=== PATIENT | female | born 1970 | race Caucasian/White ===

== ENCOUNTER → 2020-12-18 18:00 | Outpatient (CLI) | payer BC, SELFPAY ==
[2020-12-18 18:19] LABS: Basophils # 0.1 K/mm3 (0-0.2); Basophils % 0.8 % (0.1-2.0); Eosinophils # 0.2 K/mm3 (0.0-0.4); Eosinophils % 1.7 % (0.1-12.0); Hemoglobin 15.6 g/dL (12.2-16.2); Lymphocytes # 5.2 K/mm3 (0.7-4.5); Lymphocytes % 41.6 % (10-50); Mean Corpuscular HGB Conc 31.9 g/dL (31.8-35.4); Mean Corpuscular Hemoglobin 30.8 pg (27.0-31.2); Mean Corpuscular Volume 96.8 fl (81-99); Mean Platelet Volume 8.3 fl (7.4-10.4); Monocytes # 0.6 K/mm3 (0.1-1.0); Monocytes % 4.4 % (1.7-9.3); Neutrophils # 6.4 K/mm3 (1.8-7.8); Neutrophils % 51.5 % (37.0-80.0); Platelet Count 284 K/mm3 (142-424); Red Blood Count 5.06 M/mm3 (4.20-5.40); Red Cell Distribution Width 12.7 % (11.5-17.5); White Blood Count 12.4 K/mm3 (4.8-10.8)
[2020-12-18 18:29] LABS: Alanine Aminotransferase 27 U/L (12-78); Albumin Level 4.5 g/dl (3.5-5.0); Albumin/Globulin Ratio 1.5 (1.1-1.8); Alkaline Phosphatase 95 U/L (38-126); Anion Gap 13.2 mEq/L (5-15); Aspartate Amino Transferase 26 U/L (14-36); Bilirubin,Total 0.4 mg/dl (0.2-1.3); Blood Urea Nitrogen 9 mg/dl (7-17); Calcium 10.2 mg/dl (8.4-10.2); Carbon Dioxide 27 mmol/L (22.0-30.0); Chloride 103 mmol/L (98-107); Estimated Glomerular Filt Rate 75 ml/min (>60); GFR (African American) 91 ML/MIN (>60); Glucose 90 mg/dl (74-100); HDL Cholesterol 48 mg/dl (40-60); Potassium 4.2 mmoL/L (3.5-5.1); Sodium 139 mmol/L (136-145); Total Protein,Serum 7.5 g/dl (6.3-8.2); Triglycerides 294 mg/dl (30-150); VLDL Cholesterol 59 mg/dL (0-40)
[2020-12-18 18:37] LABS: Chol/HDL Ratio 7.3 (1-3.5); Cholesterol 349 mg/dl (140-200)
[2020-12-18 18:39] LABS: Direct LDL Cholesterol 256.63 mg/dL (100-129)
[2020-12-18 18:59] LABS: Thyroid Stimulating Hormone 4.06 uIU/mL (0.465-4.68)
== END ==
PROVIDERS: Visit Provider Family Medicine
DX: Z01.89 Encounter for other specified special examinations (principal)
CPT/HCPCS: 80053; 80061; 84436; 84443; 85025

== ENCOUNTER 2021-07-24 19:47 | Emergency (ER) | payer BC, SELFPAY ==
--- NOTE | 2021-07-24 19:38 | ECG_ITS ---
APPROVED REPORT Exam: Resting ECG HR:88 bpm ECG Measurements Heart Rate 88 AXES ND 118 P 18 QRSd 68 QRS 21 QT 370 T 27 QTc 447 Conclusion Normal sinus rhythm Normal ECG Electronically signed by : Parag Strong MD 07/25/2021 09:45:52
[2021-07-24 19:47] VITALS: BP 142/95; PULSE 95; RESP 16; TEMP 36.6; O2SAT 99; BMI 28.5
[2021-07-24 19:59] VITALS: BMI 28.5
--- NOTE | 2021-07-24 19:59 | XR_ITS ---
PROCEDURE INFORMATION: Exam: XR Chest Exam date and time: 07/24/2021 7:59 PM Age: 50 years old Clinical indication: Injury or trauma; Fall; Blunt trauma (contusions or hematomas); Additional info: Pain in left chest/rib area post fall TECHNIQUE: Imaging protocol: XR of the chest. Views: 2 views. COMPARISON: No relevant prior studies available. FINDINGS: Lungs: Unremarkable. No consolidation. Pleural spaces: Unremarkable. No pleural effusion. No pneumothorax. Heart/Mediastinum: Unremarkable. No cardiomegaly. Bones/joints: Unremarkable. There is dextroconvex lower thoracic and upper lumbar scoliosis. IMPRESSION: No acute findings.
--- NOTE | 2021-07-24 20:00 | XR_ITS ---
PROCEDURE INFORMATION: Exam: XR Left Ribs Exam date and time: 07/24/2021 8:00 PM Age: 50 years old Clinical indication: Injury or trauma; Fall; Rib area, left side; Blunt trauma; Additional info: Pain in left chest/rib post fall TECHNIQUE: Imaging protocol: XR Left ribs. Views: 2 views. COMPARISON: CR XR CHEST 2V 07/24/2021 8:33 PM FINDINGS: Bones/joints: No evidence of acute fracture. There is no evidence of left pleural effusion or pneumothorax. Dextroconvex lower thoracic and lumbar scoliosis is identified. Soft tissues: Normal. IMPRESSION: No acute findings.
[2021-07-24 20:09] LABS: Basophils # 0.1 K/mm3 (0-0.2); Basophils % 1.2 % (0.1-2.0); Eosinophils # 0.1 K/mm3 (0.0-0.4); Eosinophils % 1.4 % (0.1-12.0); Hematocrit 46.6 % (37.0-47.0); Lymphocytes % 40.9 % (10-50); Mean Corpuscular HGB Conc 32.2 g/dL (31.8-35.4); Mean Corpuscular Hemoglobin 31.6 pg (27.0-31.2); Mean Corpuscular Volume 98.1 fl (81-99); Mean Platelet Volume 8.1 fl (7.4-10.4); Monocytes # 0.5 K/mm3 (0.1-1.0); Neutrophils % 51.5 % (37.0-80.0); Platelet Count 312 K/mm3 (142-424); Red Blood Count 4.76 M/mm3 (4.20-5.40); Red Cell Distribution Width 12.8 % (11.5-17.5); White Blood Count 9.7 K/mm3 (4.8-10.8)
[2021-07-24 20:11] LABS: Chloride 105 mmol/L (98-107); Potassium 3.9 mmoL/L (3.5-5.1); Sodium 140 mmol/L (136-145)
[2021-07-24 20:14] LABS: Blood Urea Nitrogen 5 mg/dl (7-17); Creatinine Clearance Estimated 139 mL/min (50-200); Estimated Glomerular Filt Rate 105 ml/min (>60); GFR (African American) 127 ML/MIN (>60)
[2021-07-24 20:15] LABS: Anion Gap 11.9 mEq/L (5-15); Calcium 9.1 mg/dl (8.4-10.2); Carbon Dioxide 27 mmol/L (22.0-30.0); Glucose 129 mg/dl (74-100)
[2021-07-24 20:30] LABS: Troponin I < 0.01 ng/ml (0.00-0.034)
--- NOTE | 2021-07-24 21:11 | [facility].EDGENADL ---
ED Disposition Clinical Impression: Contusion, chest wall Qualifiers: Encounter type: initial encounter Laterality: unspecified laterality Qualified Code(s): S20.219A - Contusion of unspecified front wall of thorax, initial encounter Contusion of rib on left side Qualifiers: Encounter type: initial encounter Qualified Code(s): S20.212A - Contusion of left front wall of thorax, initial encounter Blunt trauma to abdomen Qualifiers: Encounter type: initial encounter Qualified Code(s): S39.91XA - Unspecified injury of abdomen, initial encounter Disposition: Home, Self-Care Condition on Discharge: Good Instructions: DI for Rib Contusion Additional Instructions: fluids and see pcp for follow up Referrals: Edgar Lux MD [Primary Care Provider] - Angella Noe MD [Referring] - - Critical Care Critical Care Time: No Attestation: On 07/24/21, the high probability of a clinically significant, sudden or life threatening deterioration of the following system(s) required my full and direct attention, intervention and personal management. The time I documented below is in addition to time spent performing reported procedures but includes the following listed in this critical care notation. Medical Decision Making - Medical Records Medical records reviewed: Yes: I reviewed the patient's medical records. - Monico Inquiry Pt receiving controlled substance: No Vital Signs: 07/24/21 19:47 07/24/21 21:22 07/24/21 21:30 Temperature 97.9 F Temperature Source Oral Pulse Rate 75 68 Pulse Rate [Right] 95 H Respiratory Rate 16 17 14 Blood Pressure 145/94 H 143/94 H Blood Pressure [Right Arm] 142/95 H Blood Pressure Mean [Right Arm] 110 Blood Pressure Source [Right Arm] Automatic Cuff Blood Pressure Position [Right Arm] Sitting 02 Sat by Pulse Oximetry 99 98 99 Oxygen Delivery Method Room Air - Lab Data Lab results reviewed: Yes: I reviewed the patient's lab results. Lab Results 07/24/21 19:55: WBC 9.7, RBC 4.76, Hgb 15.0, Hct 46.6, MCV 98.1, MCH 31.6 H, MCHC 32.2, RDW 12.8, Plt Count 312, MPV 8.1, Neut % (Auto) 51.5, Lymph % (Auto) 40.9, [place] % (Auto) 5.0, Eos % (Auto) 1.4, Baso % (Auto) 1.2, Neut # (Auto) 5.0, Lymph # (Auto) 4.0, [place] # (Auto) 0.5, Eos # (Auto) 0.1, Baso # (Auto) 0.1 07/24/21 19:55: Sodium 140, Potassium 3.9, Chloride 105, Carbon Dioxide 27, Anion Gap 11.9, BUN 5 L, Creatinine 0.60, Estimated Creat Clear 139, Estimated GFR 105, Est GFR ( Amer) 127, Glucose 129 H, Calcium 9.1, Troponin I < 0.01 Result diagrams: 07/24/21 19:55 07/24/21 19:55 Orders (Tests/Meds): ED MEDICATIONS Discontinued Medications Generic Name Dose Route Start Last Admin Trade Name Freq PRN Reason Stop Dose Admin Iopamidol 70 ml 07/24/21 22:22 07/24/21 22:24 Iopamidol-370 (76%);100ml Bottle IV 07/24/21 22:23 70 ml ONCE ONE Administration Sodium Chloride 40 ml 07/24/21 22:22 07/24/21 22:24 0.9 % Sodium Chloride 50 Ml Vial IV 07/24/21 22:23 40 ml ONCE ONE Administration Sodium Chloride 10 ml 07/24/21 22:22 07/24/21 22:24 Sodium Chloride 0.9% 10ml Syr (Rad Only) IV 07/24/21 22:23 10 ml ONCE ONE Administration ORDERS Category Date Time Status Troponin I Q3H Lab 07/24/21 23:10 Received Troponin I Q3H Lab 07/25/21 02:00 Ordered - Radiology Data #1 Image(s): Chest, Other (ribs ) Image Reviewed: Yes I have reviewed radiologist's interpretation Preliminary Findings: No Fracture Seen - CT Data CT Scan: C-Spine, Abdomen, Pelvis, Chest, T-Spine Time Received: 23:[address] Reviewed: Yes: I have viewed the radiologist's interpretation Preliminary Findings: No Fracture Seen - ECG Data Tracing #1 Normal Sinus Rhythm: Yes Ischemic changes: non-specific ST-T wave changes Medical Decision Narrative: no acute fx noted General Adult HPI - General Chief complaint: PAIN Stated complaint: chest pain Time Seen by Provider: 07/24/21 2
--- NOTE | 2021-07-24 21:12 | CT_ITS ---
PROCEDURE INFORMATION: Exam: CT Cervical Spine Without Contrast Exam date and time: 07/24/2021 9:12 PM Age: 50 years old Clinical indication: Injury or trauma; Fall; Blunt trauma; Injury date: 07/24/2021; Additional info: Pain in chest/rib left side post fall TECHNIQUE: Imaging protocol: Computed tomography images of the cervical spine without contrast. Radiation optimization: All CT scans at this facility use at least one of these dose optimization techniques: automated exposure control; mA and/or kV adjustment per patient size (includes targeted exams where dose is matched to clinical indication); or iterative reconstruction. COMPARISON: CR XR RIBS LT 2V 07/24/2021 8:37 PM FINDINGS: Bones/joints: No acute fracture. Reversal of normal cervical lordotic curvature which is likely on the basis of patient head position at the time of imaging. Discs/Spinal canal/Neural foramina: Intervertebral disc space narrowing of C5-C6 and C6-C7. Areas of focal osseous encroachment into the anterior epidural space noted at both levels. No evidence of osseous central canal stenosis. Exit foramina appear patent throughout the cervical spine. There is narrowing and degenerative changes noted between the anterior arch of C1 and the dens of C2. Lungs: Lung apices are normal. Soft tissues: Unremarkable. IMPRESSION: Degenerative changes of the cervical spine. No evidence of acute fracture.
--- NOTE | 2021-07-24 21:12 | CT_ITS ---
PROCEDURE INFORMATION: Exam: CT Abdomen And Pelvis With Contrast Exam date and time: 07/24/2021 9:12 PM Age: 50 years old Clinical indication: Injury or trauma; Fall; Blunt; Generalized; Injury date: 07/24/2021; Additional info: Pain in chest/rib left side post fall trauma protocols TECHNIQUE: Imaging protocol: Computed tomography of the abdomen and pelvis with contrast. Radiation optimization: All CT scans at this facility use at least one of these dose optimization techniques: automated exposure control; mA and/or kV adjustment per patient size (includes targeted exams where dose is matched to clinical indication); or iterative reconstruction. Contrast material: ISOVUE; Contrast volume: 70 ml; Contrast route: IV; COMPARISON: CT THORACIC SPINE WO CON 07/24/2021 10:03 PM FINDINGS: Lungs: No mass/infiltrate at either lung base. No pleural effusion. Liver: There is a small ill-defined area of diminished attenuation noted adjacent to the falciform ligament within the medial segment of the left hepatic lobe. This is felt to be benign, representing an area of focal fatty infiltration. The liver is normal size. No intrahepatic biliary dilitation. Gallbladder and bile ducts: Normal. No calcified stones. No ductal dilation. Gallbladder wall thickness is normal. Pancreas: Normal. No ductal dilation. Spleen: Normal. No splenomegaly. Adrenal glands: Normal. No mass. Kidneys and ureters: There is a 1.4 cm exophytic cyst arising from the inferior pole the left kidney. No follow-up imaging recommended. Otherwise unremarkable. Stomach and bowel: Unremarkable. No obstruction. No mucosal thickening. Small bowel mesentery is normal. Appendix: The appendix is poorly visualized on this examination. Intraperitoneal space: Unremarkable. No free air. No significant fluid collection. Vasculature: Atheromatous calcifications of the aorta and iliac arteries noted. No abdominal aortic aneurysm. Lymph nodes: Unremarkable. No enlarged lymph nodes. Urinary bladder: Unremarkable as visualized. Reproductive: Unremarkable as visualized. Bones/joints: Degenerative changes noted. No acute fracture. Soft tissues: Diastasis of the inferior rectus abdominus muscle compatible with a small ventral hernia. IMPRESSION: No acute process within the abdomen or pelvis.
--- NOTE | 2021-07-24 21:12 | CT_ITS ---
PROCEDURE INFORMATION: Exam: CT Thoracic Spine Without Contrast Exam date and time: 07/24/2021 9:12 PM Age: 50 years old Clinical indication: Injury or trauma; Fall; Blunt trauma (contusions or hematomas); Injury date: 07/24/2021; Additional info: Pain in chest/rib left side post fall TECHNIQUE: Imaging protocol: Computed tomography images of the thoracic spine without contrast. Radiation optimization: All CT scans at this facility use at least one of these dose optimization techniques: automated exposure control; mA and/or kV adjustment per patient size (includes targeted exams where dose is matched to clinical indication); or iterative reconstruction. COMPARISON: CT CERVICAL SPINE WO CON 07/24/2021 9:57 PM FINDINGS: Vertebrae: No acute fracture. Normal alignment. Discs/Spinal canal/Neural foramina: No significant disc protrusion. No severe spinal canal stenosis. No significant neural foraminal narrowing. There is mild anterior osteophyte formation noted at T6-T7, T7-T8, and T9-T10. Soft tissues: Unremarkable. IMPRESSION: Unremarkable CT Spine. Mild degenerative changes. No evidence of acute fracture or malalignment.
--- NOTE | 2021-07-24 21:12 | CT_ITS ---
PROCEDURE INFORMATION: Exam: CTA Chest With Contrast Exam date and time: 07/24/2021 9:12 PM Age: 50 years old Clinical indication: Injury or trauma; Fall; Bleeding/hemorrhage; Injury date: 07/24/2021; Additional info: Pain in chest/rib left side post fall trauma protocols. Pain in left ribs TECHNIQUE: Imaging protocol: Computed tomographic angiography of the chest with contrast. 3D rendering (Not supervised by radiologist): MIP and/or 3D reconstructed images were created by the technologist. Radiation optimization: All CT scans at this facility use at least one of these dose optimization techniques: automated exposure control; mA and/or kV adjustment per patient size (includes targeted exams where dose is matched to clinical indication); or iterative reconstruction. Contrast material: ISOVUE 370; Contrast volume: 70 ml; Contrast route: INTRAVENOUS (IV); COMPARISON: CR XR CHEST 2V 07/24/2021 8:33 PM FINDINGS: Pulmonary arteries: The pulmonary trunk, main, and branch pulmonary arteries contain no filling defects. Aorta: Unremarkable. No aortic aneurysm. No aortic dissection. Lungs: Unremarkable. No consolidation. No masses. Pleural spaces: Unremarkable. No pneumothorax. No pleural effusion. Heart: No cardiomegaly. No pericardial effusion. Heart RV/LV ratio: Within normal limits. Coronary arteries: There is no evidence of significant coronary artery calcifications. Mediastinal space: No evidence of mediastinal or hilar mass. Lymph nodes: Unremarkable. No enlarged lymph nodes. Bones/joints: Unremarkable. Specifically no visible left rib fracture identified. Soft tissues: Unremarkable. IMPRESSION: No acute findings.
[2021-07-24 21:22] VITALS: BP 145/94; PULSE 75; RESP 17; O2SAT 98
[2021-07-24 21:30] VITALS: BP 143/94; PULSE 68; RESP 14; O2SAT 99
--- NOTE | 2021-07-24 21:55 | PC.NURSE ---
Pt to CT at this time
--- NOTE | 2021-07-24 21:55 | PC.NURSE ---
pt to CT
--- NOTE | 2021-07-24 22:35 | PC.NURSE ---
Pt returned from CT
[2021-07-24 22:53] VITALS: BP 156/92; PULSE 72; RESP 20; O2SAT 99
[2021-07-24 23:35] VITALS: BP 147/88; PULSE 77; RESP 16; TEMP 36.8; O2SAT 98
[2021-07-24 23:41] LABS: Troponin I < 0.01 ng/ml (0.00-0.034)
== END 2021-07-24 23:38 | disposition home or self-care (01) ==
PROVIDERS: Emergency Provider Emergency Medicine; PCP Family Medicine
DX: S20.212A Contusion of left front wall of thorax, initial encounter (principal); S39.91XA Unspecified injury of abdomen, initial encounter; W22.8XXA Striking against or struck by other objects, initial encounter; Y92.89 Other specified places as the place of occurrence of the external cause; E78.5 Hyperlipidemia, unspecified; Z79.899 Other long term (current) drug therapy
CPT/HCPCS: 36415; 71046; 71100; 71275; 72125; 72128; 74177; 80048; 84484; 85025; 93005; 96374; 99283; Q9967

== ENCOUNTER → 2021-08-04 12:59 | Outpatient (POV) | payer BC, SELFPAY | PROVIDERS: Visit Provider Dermatology | DX: Z00.00 Encounter for general adult medical examination without abnormal findings (principal) ==

== ENCOUNTER → 2022-10-22 14:00 | Outpatient (CLI) | payer BC, SELFPAY ==
[2022-10-22 15:18] LABS: Coronavirus 19, PCR Not Detected (NotDetected)
[2022-10-22 17:16] LABS: Influenza A, PCR Not Detected (NotDetected); Influenza B, PCR Not Detected (NotDetected)
== END ==
PROVIDERS: PCP Family Medicine; Visit Provider Family Medicine
DX: R05.9 Cough, unspecified (principal)
CPT/HCPCS: C9803; U0003; U0005

== ENCOUNTER 2023-12-05 19:42 | Outpatient (CLI) | payer BC, SELFPAY | END 2023-12-05 23:59 | LOC: LAB.DROPOF 19:43 | PROVIDERS: PCP Family Medicine; Visit Provider Family Medicine | DX: N39.0 Urinary tract infection, site not specified (principal) | CPT/HCPCS: 87086 ==